=== PATIENT | female | born 1950 | race Caucasian/White ===

== ENCOUNTER 2017-11-29 14:11 | Outpatient (CLI) | payer MEDICARE, BC | END 2017-11-29 14:12 | disposition home or self-care (01) | LOC: BICMAMMO 14:11 | PROVIDERS: ATTEND Specialist | DX: Z13.820 Encounter for screening for osteoporosis (principal); M85.80 Other specified disorders of bone density and structure, unspecified site; Z85.3 Personal history of malignant neoplasm of breast; Z78.0 Asymptomatic menopausal state | CPT/HCPCS: 77066; 77080; G0279 ==

== ENCOUNTER 2018-12-24 08:40 | Outpatient (CLI) | payer MEDICARE, BC ==
--- NOTE | 2018-12-25 09:00 | MMO ---
FILMS COMPARED: The present examination has been compared to prior imaging studies performed at [facility] on 11/07/2015, 11/19/2016 and 11/29/2017, at [facility] on 06/29/2008 and 06/24/2009, and at [facility] on 06/30/2010, 08/16/2011 and 08/22/2012. MAMMOGRAM FINDINGS: The breasts are heterogeneously dense, which could obscure a lesion on mammography. Benign calcifications are noted bilaterally. No suspicious calcifications or masses are seen. Skin thickening has improved. IMPRESSION: FINDINGS IN BOTH BREASTS ARE BENIGN. A ROUTINE FOLLOW-UP MAMMOGRAM IN 1 YEAR IS RECOMMENDED. ACR BI-RADS Category 2 - Benign finding
== END 2018-12-24 08:41 | disposition home or self-care (01) ==
LOC: BICMAMMO 08:40
PROVIDERS: ATTEND Specialist
DX: Z08 Encounter for follow-up examination after completed treatment for malignant neoplasm (principal); Z85.3 Personal history of malignant neoplasm of breast
CPT/HCPCS: 77066; G0279

== ENCOUNTER 2020-01-08 08:09 | Outpatient (CLI) | payer MEDICARE, BC ==
--- NOTE | 2020-01-08 09:03 | MMO ---
Bilateral MAMMO Bilat Diag [facility]. CLINICAL HISTORY: Patient is 69 years old and is seen for diagnostic exam. The patient has the following family history of breast cancer: maternal aunt, GREAT. The patient has a history of Ultrasound guided core biopsy procedure revealed invasive ductal right breast carcinoma in October, and malignant (generic) in the left breast at age 50. The patient has a history of right Lumpectomy in October, - malignant and left Lumpectomy in 2000 - malignant. VIEWS: The views performed were: bilateral craniocaudal with tomosynthesis; bilateral mediolateral oblique with tomosynthesis; bilateral mediolateral with tomosynthesis; right craniocaudal spot compression with tomosynthesis; and right lateromedial with tomosynthesis. FILMS COMPARED: The present examination has been compared to prior imaging studies performed at [facility] on 11/07/2015, 11/19/2016, 11/29/2017 and 12/24/2018. This study has been interpreted with the assistance of computer-aided detection. MAMMOGRAM FINDINGS: There are scattered fibroglandular densities. Finding 1: There are stable post operative changes seen in both breasts. Finding 2: There are stable benign appearing calcifications seen in both breasts. There are no suspicious masses, suspicious calcifications, or new areas of architectural distortion. IMPRESSION: THERE IS NO MAMMOGRAPHIC EVIDENCE OF MALIGNANCY. A ROUTINE FOLLOW-UP MAMMOGRAM IN 1 YEAR IS RECOMMENDED. THE RESULTS OF THIS EXAM WERE SENT TO THE PATIENT. ACR BI-RADS Category 2 - Benign finding MAMMOGRAPHY NOTE: 1. A negative mammogram report should not delay a biopsy if a dominant of clinically suspicious mass is present. 2. Approximately 10% to 15% of breast cancers are not detected by mammography. 3. Adenosis and dense breasts may obscure an underlying neoplasm. Reported by: MIGUEL YODER MD Electonically Signed: [id number]
== END 2020-01-08 08:10 | disposition home or self-care (01) ==
LOC: BICMAMMO 08:09
PROVIDERS: ATTEND Specialist
DX: Z08 Encounter for follow-up examination after completed treatment for malignant neoplasm (principal); Z85.3 Personal history of malignant neoplasm of breast
CPT/HCPCS: 77066; G0279

== ENCOUNTER 2021-01-09 09:19 | Outpatient (CLI) | payer MEDICARE | END 2021-01-09 09:20 | disposition home or self-care (01) | LOC: BICMAMMO 09:19 | PROVIDERS: ATTEND Specialist | DX: Z08 Encounter for follow-up examination after completed treatment for malignant neoplasm (principal); Z85.3 Personal history of malignant neoplasm of breast | CPT/HCPCS: 77066; G0279 ==

== ENCOUNTER 2022-01-12 09:15 | Outpatient (CLI) | payer MEDICARE | END 2022-01-12 09:16 | disposition home or self-care (01) | LOC: BICMAMMO 09:15 | PROVIDERS: ATTEND Specialist | DX: Z08 Encounter for follow-up examination after completed treatment for malignant neoplasm (principal); Z85.3 Personal history of malignant neoplasm of breast | CPT/HCPCS: 77066; G0279 ==

== ENCOUNTER 2023-01-15 13:43 | Outpatient (CLI) | payer MEDICARE | END 2023-01-15 13:44 | disposition home or self-care (01) | LOC: BICMAMMO 13:43 | PROVIDERS: ATTEND Specialist | DX: Z12.31 Encounter for screening mammogram for malignant neoplasm of breast (principal); Z85.3 Personal history of malignant neoplasm of breast; Z80.3 Family history of malignant neoplasm of breast; Z98.890 Other specified postprocedural states | CPT/HCPCS: 77063; 77067 ==